=== PATIENT | female | born 1990 ===

== ENCOUNTER 2016-09-26 21:44 | Emergency (ER) | payer SELFPAY ==
--- NOTE | 2016-09-26 22:43 | ED NURSING NOTES ---
Clinical Report - Nurses [place] [address] [place] [address] 09/26/2016 21:45 Patient: SHAYAN GARZA TRIAGE Triage time 22:10 Sep 26 2016. Acuity: LEVEL 5. Chief Complaint: INJURY TO THE RIGHT GREAT TOE. 22:13 09/26/16. --22:13 Reina Peña R.N. Chief Complaint: INJURY TO THE RIGHT GREAT TOE (nail ripped off). --22:15 Reina Peña R.N. 22:14 09/26/16. BP: 128/53. HR: 87. RR: 18. O2 saturation: 100%. Temp: 98.3 F. Pain level now 7/10. --22:15 Reina Peña R.N. Weight: 95.2 kg stated. Height/Length: 65 inches Per Patient. BMI: 35. --22:09 Reina Peña R.N. Medications None. --22:11 Reina Peña R.N. Medication/allergy information source: the patient. --22:13 Reina Peña R.N. Allergies No Known Drug Allergy. --22:12 Reina Peña R.N. History Arrived by private vehicle. Historian: patient. Accompanied by family and friend. 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 SOCIAL HX: Never smoker. No alcohol use or drug use. No infectious disease exposure. ABUSE ASSESSMENT: No report of abuse. SELF HARM ASSESSMENT: A self harm assessment was performed. The patient answered "no" to the question "Have you recently felt down, depressed, or hopeless?", "Have you noticed less interest or pleasure in doing things?", "Do you have thoughts of harming or killing yourself?", "Are you here because you tried to hurt yourself?", "Have you ever tried to hurt yourself before today?", "Have you recently had thoughts about harming or killing others?" and "Do you have any dangerous items in your possession?". --22:13 Reina Peña R.N. ( was stepping into a truck and toe slipped, nail caught on rail). PAST MEDICAL HX: Tetanus status: more than 5 years ago. --22:15 Reina Peña R.N. PROBLEMS: no known problems. ADDITIONAL SURGERIES: no known surgeries. Interventions ID band on patient. --22:13 Reina Peña R.N. PHYSICAL ASSESSMENT EXTREMITIES: Right big toe: (toe nail ripped off (incomplete)). --22:16 Reina Peña R.N. NURSING PROGRESS NOTES 22:16 09/26/16. The initial plan of care for this patient includes an assessment with efforts to address the presence of pain. This plan of care was discussed with the patient. Reassurance given. Patient identifiers checked. Call light placed in reach. Side rails up x 1. Bed placed in lowest position. Brakes of bed on. ( Md in during triage). --22:16 Reina Peña R.N. 22:23 09/26/2016 Adacel IM 0.5 mL given. (Lot#: [id number], expiration date: 06/27/2018, Saddle And Harness Maker: sanofi pasteur). Given in the right deltoid. Allergies verified and confirmed 5 rights. Vaccine information statement provided to the patient. --22:24 Reina Peña R.N. 22:25 09/26/16. WOUND REPAIR: Wound repair performed by ED physician. Assisted by (UNASSISTED). The wound is located on the right great toe. The wound has an avulsed nail. Preparation: suture tray set-up with 0.25% Marcaine. Wound cleansed per physician and irrigated per physician. Procedure: wound repaired with Dermabond. Post-procedure: she was stable. Total time of assist / procedure: 15 minutes. --22:25 Reina Peña R.N. Applied dressing, following the application of antibiotic ointment (bacitracin) (2x2 secured with 1 inch neeraj and coban). --22:56 Reina Peña R.N. 22:55 09/26/2016 Percocet (Oxycodone-Acetaminophen) PO 5/325 mg Tablets 1 tab given. Allergies verified, confirmed 5 rights and sedative warning given to the patient. --22:57 Reina Peña R.N. DISPOSITION / DISCHARGE Condition at departure: improved and stable. The goals identified in the patient's plan of care were met. No learning barriers present. Discharge instructions provided and reviewed with the patient. Reviewed medication(s) side effects, precautions, dosing and course information. Prescription(s) given to the patient. Reviewed wound care instructions. Reviewed referral to a primary care physician for followup. Summary of care provided to patient. Patient verbalized understanding. Written instructions provided in Occitan. The patient was discharged home and accompanied by analyst geochemical prospecting. She left the Emergency Department ambulatory and via private vehicle. Refrigeration Tech driving. FALL RISK ASSESSMENT: Fall risk assessment completed. No fall risk identified. --22:58 Reina Peña R.N. 22:14 09/26/16. BP: 128/53. HR: 87. RR: 18. O2 saturation: 100%. Temp: 98.3 F. Pain level now 7/10. --22:58 Reina Peña R.N. Departure time: 22:58 Sep 26 2016. --22:58 Reina Peña R.N. Locked/Released at 09/26/2016 22:58 by Reina Peña R.N.
--- NOTE | 2016-09-26 22:43 | ED ORDER SUMMARY ---
..... Patient: SHAYAN GARZA OrderSheet [facility] VisitID: [id number] [address] [place] [address] 26y, F Registration Date/Time: 09/26/2016 ORDER SHEET Weight: 95.2 kg (stated) Allergies: No Known Drug Allergy GENERAL ORDERS: Toe Right (great) Urgent (22:29 09/26/2016 [facility] DO) (22:45 EInderbitzen R.N.) Dress Wounds (bandaid) (22:40 09/26/2016 [facility] DO) (22:45 EInderbitzen R.N.) Orthopedic Shoe (cast shoe) (22:40 09/26/2016 [facility]) (22:45 EInderbitzen R.N.) MEDICATION ORDERS: Adacel IM 0.5 mL (NOW) (22:17 09/26/2016 EInderbitzen R.N. verbal order read back to [facility]) (22:24 EInderbitzen R.N.) Hydrocodone-APAP PO 5/325 mg (NOW) (22:41 09/26/2016 [facility]) (Cancelled: Physician Order22:57 EInderbitzen R.N.) Percocet PO 5/325 mg (NOW) (22:57 09/26/2016 EInderbitzen R.N. verbal order read back to [facility]) (22:57 EInderbitzen R.N.) IV FLUIDS: ORDER SHEET NOTES: [Electronically signed by Reina Peña R.N. (22:58 09/26/2016)] [Electronically signed by Attila Ambrocio DO (20:28 09/27/2016)] [Electronically locked/signed by Reina Peña R.N. (22:58 09/26/2016)]
--- NOTE | 2016-09-26 22:43 | ED CLINICAL REPORT ---
Clinical Report - Physicians/Mid Levels [facility] [address] [place] [address] 09/26/2016 21:45 Patient: SHAYAN GARZA Time Seen: 22:10. Arrived- By private vehicle. Historian- patient. HISTORY OF PRESENT ILLNESS Chief Complaint: Injury to the right great toe. The injury happened just prior to arrival. Occurred at home. (was stepping into a truck and toe slipped, nail caught on a rail). Patient is experiencing moderate pain. Patient denies injury to the head or neck. No other injury. REVIEW OF SYSTEMS The patient sustained a laceration. She complains of pain on weight bearing. She has had swelling. No tingling, weakness, numbness or suspected foreign body. PAST HISTORY Negative. Surgeries: No history of previous surgery. SOCIAL HISTORY Never smoker. No alcohol use or drug use. ADDITIONAL NOTES The nursing notes have been reviewed. PHYSICAL EXAM Vital Signs: 09/26/2016 22:14 BP: 128/53. HR: 87. RR: 18. O2 saturation: 100%. Temp: 98.3 F. Appearance: Alert. Oriented X3. No acute distress. Head: Head atraumatic. Eyes: Eyes normal inspection. Neck: Normal inspection. CVS: Normal heart rate and rhythm. Heart sounds normal. Pulses normal. Respiratory: No respiratory distress. Breath sounds normal. Chest nontender. Abdomen: No visible injury. Skin: Skin warm and dry. (right great toenail avulsion). Extremities: Tip of right great toe: moderate tenderness nail completely avulsed. No foreign body. No right great toe tip amputation, exposed bone of right great toe or loss of the nail bed of right great toe. Extremities otherwise negative. Gait: Limping gait. Neuro, Vascular and Tendons: Vascular status intact. Sensation intact. Motor intact. LABS, X-RAYS, AND EKG Rt Toes X-ray: No fracture. Normal alignment. No bony lesion, air in the soft tissue or foreign body. Soft tissues normal. Joint spaces normal. (IMPRESSION: 1. Nailbed injury of the right great toe. 2. No evidence of fracture.). Views: AP, lateral and oblique. Technique: good. The X-rays were interpreted contemporaneously by me. The X-rays were discussed with the radiologist (via PACS report). PROGRESS AND PROCEDURES Digital Nerve Block- Toe: Digital nerve block performed on the right great toe. Web space approach utilized. Landmarks identified. Skin prepped. Total volume of 4 mL 2% Lidocaine infiltrated via a single puncture using a 27-gauge needle. Patient cooperative during procedure. No complications encountered. Good anesthesia achieved. (Nail replaced under nail fold and glued in place). Course of Care: Tdap Vaccine 0.5 mL IM given. Hydrocodone/APAP 5 mg PO given. Patient/family counseled. Disposition: Discharged. Condition: stable and improved. CLINICAL IMPRESSION Complete nail avulsion to right great toe. INSTRUCTIONS Apply ice. Elevate affected areas above chest level. Wear stiff soled shoe until better. You may walk and bear weight as tolerated. (Please make sure the nail stays in place to serve as a stent for the new nail growth). Warnings: INFECTION: Watch for signs of infection (increasing heat and redness, pus-like drainage, swelling, or increased pain). Return or see your doctor if these signs occur. TETANUS: You were given a tetanus shot during your visit. Make a note for future reference. GENERAL WARNINGS: Return or contact your physician immediately if your condition worsens or changes unexpectedly, if not improving as expected, or if other problems arise. Prescription Medications: Hydrocodone/APAP 5mg / 325mg: take 1-2 orally every 6 hours as needed for pain. Dispense five (5). No refill. Ibuprofen 600mg tablets: take 1 tablet orally every 8 hours as needed for pain. Dispense thirty (30). No refills. OTC Medications: Acetaminophen (available over the counter): take according to label instructions. Follow-up: Follow up with your doctor in about five days. Follow-up with: Daniel Younger DPM, Podiatry, , [facility], [address] [place] [address], [address], [place] [address] Follow up. Call for the next available appointment. (Electronically signed by Attila Ambrocio DO 09/27/2016 20:28)
--- NOTE | 2016-09-26 22:43 | ED CLINICAL REPORT ---
Clinical Report - Physicians/Mid Levels [facility] [address] [place] [address] 09/26/2016 21:45 Patient: SHAYAN GARZA Time Seen: 22:10. Arrived- By private vehicle. Historian- patient. HISTORY OF PRESENT ILLNESS Chief Complaint: Injury to the right great toe. The injury happened just prior to arrival. Occurred at home. (was stepping into a truck and toe slipped, nail caught on a rail). Patient is experiencing moderate pain. Patient denies injury to the head or neck. No other injury. REVIEW OF SYSTEMS The patient sustained a laceration. She complains of pain on weight bearing. She has had swelling. No tingling, weakness, numbness or suspected foreign body. PAST HISTORY Negative. Surgeries: No history of previous surgery. SOCIAL HISTORY Never smoker. No alcohol use or drug use. ADDITIONAL NOTES The nursing notes have been reviewed. PHYSICAL EXAM Vital Signs: 09/26/2016 22:14 BP: 128/53. HR: 87. RR: 18. O2 saturation: 100%. Temp: 98.3 F. Appearance: Alert. Oriented X3. No acute distress. Head: Head atraumatic. Eyes: Eyes normal inspection. Neck: Normal inspection. CVS: Normal heart rate and rhythm. Heart sounds normal. Pulses normal. Respiratory: No respiratory distress. Breath sounds normal. Chest nontender. Abdomen: No visible injury. Skin: Skin warm and dry. (right great toenail avulsion). Extremities: Tip of right great toe: moderate tenderness nail completely avulsed. No foreign body. No right great toe tip amputation, exposed bone of right great toe or loss of the nail bed of right great toe. Extremities otherwise negative. Gait: Limping gait. Neuro, Vascular and Tendons: Vascular status intact. Sensation intact. Motor intact. LABS, X-RAYS, AND EKG Rt Toes X-ray: No fracture. Normal alignment. No bony lesion, air in the soft tissue or foreign body. Soft tissues normal. Joint spaces normal. (IMPRESSION: 1. Nailbed injury of the right great toe. 2. No evidence of fracture.). Views: AP, lateral and oblique. Technique: good. The X-rays were interpreted contemporaneously by me. The X-rays were discussed with the radiologist (via PACS report). PROGRESS AND PROCEDURES Digital Nerve Block- Toe: Digital nerve block performed on the right great toe. Web space approach utilized. Landmarks identified. Skin prepped. Total volume of 4 mL 2% Lidocaine infiltrated via a single puncture using a 27-gauge needle. Patient cooperative during procedure. No complications encountered. Good anesthesia achieved. (Nail replaced under nail fold and glued in place). Course of Care: Tdap Vaccine 0.5 mL IM given. Hydrocodone/APAP 5 mg PO given. Patient/family counseled. Disposition: Discharged. Condition: stable and improved. CLINICAL IMPRESSION Complete nail avulsion to right great toe. INSTRUCTIONS Apply ice. Elevate affected areas above chest level. Wear stiff soled shoe until better. You may walk and bear weight as tolerated. (Please make sure the nail stays in place to serve as a stent for the new nail growth). Warnings: INFECTION: Watch for signs of infection (increasing heat and redness, pus-like drainage, swelling, or increased pain). Return or see your doctor if these signs occur. TETANUS: You were given a tetanus shot during your visit. Make a note for future reference. GENERAL WARNINGS: Return or contact your physician immediately if your condition worsens or changes unexpectedly, if not improving as expected, or if other problems arise. Prescription Medications: Hydrocodone/APAP 5mg / 325mg: take 1-2 orally every 6 hours as needed for pain. Dispense five (5). No refill. Ibuprofen 600mg tablets: take 1 tablet orally every 8 hours as needed for pain. Dispense thirty (30). No refills. OTC Medications: Acetaminophen (available over the counter): take according to label instructions. Follow-up: Follow up with your doctor in about five days. Follow-up with: Daniel Younger DPM, Podiatry, , [facility], [address] [place] [address], [address], [place] [address] Follow up. Call for the next available appointment. (Electronically signed by Attila Ambrocio DO 09/27/2016 20:28)
--- NOTE | 2016-09-26 22:43 | ED NURSING NOTES ---
Clinical Report - Nurses [place] [address] [place] [address] 09/26/2016 21:45 Patient: SHAYAN GARZA TRIAGE Triage time 22:10 Sep 26 2016. Acuity: LEVEL 5. Chief Complaint: INJURY TO THE RIGHT GREAT TOE. 22:13 09/26/16. --22:13 Reina Peña R.N. Chief Complaint: INJURY TO THE RIGHT GREAT TOE (nail ripped off). --22:15 Reina Peña R.N. 22:14 09/26/16. BP: 128/53. HR: 87. RR: 18. O2 saturation: 100%. Temp: 98.3 F. Pain level now 7/10. --22:15 Reina Peña R.N. Weight: 95.2 kg stated. Height/Length: 65 inches Per Patient. BMI: 35. --22:09 Reina Peña R.N. Medications None. --22:11 Reina Peña R.N. Medication/allergy information source: the patient. --22:13 Reina Peña R.N. Allergies No Known Drug Allergy. --22:12 Reina Peña R.N. History Arrived by private vehicle. Historian: patient. Accompanied by family and friend. 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 SOCIAL HX: Never smoker. No alcohol use or drug use. No infectious disease exposure. ABUSE ASSESSMENT: No report of abuse. SELF HARM ASSESSMENT: A self harm assessment was performed. The patient answered "no" to the question "Have you recently felt down, depressed, or hopeless?", "Have you noticed less interest or pleasure in doing things?", "Do you have thoughts of harming or killing yourself?", "Are you here because you tried to hurt yourself?", "Have you ever tried to hurt yourself before today?", "Have you recently had thoughts about harming or killing others?" and "Do you have any dangerous items in your possession?". --22:13 Reina Peña R.N. ( was stepping into a truck and toe slipped, nail caught on rail). PAST MEDICAL HX: Tetanus status: more than 5 years ago. --22:15 Reina Peña R.N. PROBLEMS: no known problems. ADDITIONAL SURGERIES: no known surgeries. Interventions ID band on patient. --22:13 Reina Peña R.N. PHYSICAL ASSESSMENT EXTREMITIES: Right big toe: (toe nail ripped off (incomplete)). --22:16 Reina Peña R.N. NURSING PROGRESS NOTES 22:16 09/26/16. The initial plan of care for this patient includes an assessment with efforts to address the presence of pain. This plan of care was discussed with the patient. Reassurance given. Patient identifiers checked. Call light placed in reach. Side rails up x 1. Bed placed in lowest position. Brakes of bed on. ( Md in during triage). --22:16 Reina Peña R.N. 22:23 09/26/2016 Adacel IM 0.5 mL given. (Lot#: [id number], expiration date: 06/27/2018, Asbestos Cement Sheet Supervisor: sanofi pasteur). Given in the right deltoid. Allergies verified and confirmed 5 rights. Vaccine information statement provided to the patient. --22:24 Reina Peña R.N. 22:25 09/26/16. WOUND REPAIR: Wound repair performed by ED physician. Assisted by (UNASSISTED). The wound is located on the right great toe. The wound has an avulsed nail. Preparation: suture tray set-up with 0.25% Marcaine. Wound cleansed per physician and irrigated per physician. Procedure: wound repaired with Dermabond. Post-procedure: she was stable. Total time of assist / procedure: 15 minutes. --22:25 Reina Peña R.N. Applied dressing, following the application of antibiotic ointment (bacitracin) (2x2 secured with 1 inch neeraj and coban). --22:56 Reina Peña R.N. 22:55 09/26/2016 Percocet (Oxycodone-Acetaminophen) PO 5/325 mg Tablets 1 tab given. Allergies verified, confirmed 5 rights and sedative warning given to the patient. --22:57 Reina Peña R.N. DISPOSITION / DISCHARGE Condition at departure: improved and stable. The goals identified in the patient's plan of care were met. No learning barriers present. Discharge instructions provided and reviewed with the patient. Reviewed medication(s) side effects, precautions, dosing and course information. Prescription(s) given to the patient. Reviewed wound care instructions. Reviewed referral to a primary care physician for followup. Summary of care provided to patient. Patient verbalized understanding. Written instructions provided in Slovenian. The patient was discharged home and accompanied by program officer. She left the Emergency Department ambulatory and via private vehicle. Food Safety Director driving. FALL RISK ASSESSMENT: Fall risk assessment completed. No fall risk identified. --22:58 Reina Peña R.N. 22:14 09/26/16. BP: 128/53. HR: 87. RR: 18. O2 saturation: 100%. Temp: 98.3 F. Pain level now 7/10. --22:58 Reina Peña R.N. Departure time: 22:58 Sep 26 2016. --22:58 Reina Peña R.N. Locked/Released at 09/26/2016 22:58 by Reina Peña R.N.
--- NOTE | 2016-09-26 22:43 | ED ORDER SUMMARY ---
..... Patient: SHAYAN GARZA OrderSheet [facility] VisitID: [id number] [address] [place] [address] 26y, F Registration Date/Time: 09/26/2016 ORDER SHEET Weight: 95.2 kg (stated) Allergies: No Known Drug Allergy GENERAL ORDERS: Toe Right (great) Urgent (22:29 09/26/2016 [facility] DO) (22:45 EInderbitzen R.N.) Dress Wounds (bandaid) (22:40 09/26/2016 [facility] DO) (22:45 EInderbitzen R.N.) Orthopedic Shoe (cast shoe) (22:40 09/26/2016 [facility]) (22:45 EInderbitzen R.N.) MEDICATION ORDERS: Adacel IM 0.5 mL (NOW) (22:17 09/26/2016 EInderbitzen R.N. verbal order read back to [facility]) (22:24 EInderbitzen R.N.) Hydrocodone-APAP PO 5/325 mg (NOW) (22:41 09/26/2016 [facility]) (Cancelled: Physician Order22:57 EInderbitzen R.N.) Percocet PO 5/325 mg (NOW) (22:57 09/26/2016 EInderbitzen R.N. verbal order read back to [facility]) (22:57 EInderbitzen R.N.) IV FLUIDS: ORDER SHEET NOTES: [Electronically signed by Reina Peña R.N. (22:58 09/26/2016)] [Electronically signed by Attila Ambrocio DO (20:28 09/27/2016)] [Electronically locked/signed by Reina Peña R.N. (22:58 09/26/2016)]
--- NOTE | 2016-09-26 23:04 | DIAGNOSTIC IMAGING REPORT ---
PROCEDURE: XR TOE - RIGHT (great toe). INDICATION: TRAUMA/INJURY TECHNIQUE: Three views. COMPARISON: None. FINDINGS: Nailbed injury. Osseous structures and joint spaces are normal. No evidence of fracture. IMPRESSION: 1. Nailbed injury of the right great toe. 2. No evidence of fracture.
--- NOTE | 2016-09-27 20:28 | ED MED RECONCILIATION SUMMARY ---
Patient: SHAYAN GARZA Medication Reconciliation Report [facility] VisitID: [id number] [address] [place] [address] 26y, F Registration Date/Time: 09/26/2016 Weight: 95.2 kg Height/Length: 65 in. BMI: 35.0 ALLERGIES: No Known Drug Allergy The patient's Home Medications are listed below: NONE. The source(s) of the original Home Medication information: patient The following Medications were given to the patient in the Emergency Department: Adacel [IM] IM 0.5 mL, administered: 09/26/2016 10:23:00 PM Percocet [PO] PO 1 tab, administered: 09/26/2016 10:55:00 PM The following Medications were prescribed to the patient: Acetaminophen (available over the counter): take according to label instructions. -- Attila Ambrocio DO Hydrocodone/APAP 5mg / 325mg: take 1-2 orally every 6 hours as needed for pain. Dispense five (5). No refill. -- Attila Ambrocio DO Ibuprofen 600mg tablets: take 1 tablet orally every 8 hours as needed for pain. Dispense thirty (30). No refills. -- Attila Ambrocio DO
--- NOTE | 2016-09-27 20:28 | ED DISCHARGE INSTRUCTIONS ---
Patient: SHAYAN GARZA General Instructions [facility] VisitID: [id number] [address], [place] [address] 26y, F Registration Date/Time: 09/26/2016 Complete nail avulsion to right great toe. INSTRUCTIONS Apply ice. Elevate affected areas above chest level. Wear stiff soled shoe until better. You may walk and bear weight as tolerated. (Please make sure the nail stays in place to serve as a stent for the new nail growth). Warnings: INFECTION: Watch for signs of infection (increasing heat and redness, pus-like drainage, swelling, or increased pain). Return or see your doctor if these signs occur. TETANUS: You were given a tetanus shot during your visit. Make a note for future reference. GENERAL WARNINGS: Return or contact your physician immediately if your condition worsens or changes unexpectedly, if not improving as expected, or if other problems arise. Prescription Medications: Hydrocodone/APAP 5mg / 325mg: take 1-2 orally every 6 hours as needed for pain. Dispense five (5). No refill. Ibuprofen 600mg tablets: take 1 tablet orally every 8 hours as needed for pain. Dispense thirty (30). No refills. OTC Medications: Acetaminophen (available over the counter): take according to label instructions. Follow-up: Follow up with your doctor in about five days. Follow-up with: Daniel Younger DPM, Podiatry, , [facility], [address] [place] [address], [address], [place] [address] Follow up. Call for the next available appointment. ADDITIONAL INFORMATION Nail Injury (Partial Finger/Toe Nail Plate Avulsion) Some injuries to a finger or toe can cause loosening of the nail. Sometimes there is a cutin the nail bed or a fracture of the bone under the nail. If the nail is more severely injured, it may fall off completely in 12 weeks. This is not serious and in most cases, the nail will grow back from under the cuticle. This takes a few weeks to start and is complete in about 46 months for a fingernail and 12 months for a toenail. If the nail bed was damaged, the nail may grow back with a rough or irregular shape. Sometimes the nail may not regrow at all. Home care The following guidelines will help you care for your wound at home: Keep the injured part elevated to reduce pain and swelling. This is very important during the first 48 hours. Make an ice pack (ice cubes in a plastic bag, wrapped in a towel) and apply for 20 minutes every two hours during the first day, then 34 times a day to reduce swelling and pain until the swelling goes down. You may use acetaminophen or ibuprofen to control pain, unless another pain medicine was prescribed.If you have chronic liver or kidney disease or ever had a stomach ulcer or GI bleeding, talk with your doctor before using these medicines. Do not use ibuprofen in children under six months of age. If a bandage was applied, change it once a day, unless told otherwise. Be careful not to pull on the nail when removing the dressing. If necessary, soak the dressing off while holding your finger or toe under warm running water. Apply a layer of antibiotic ointment onto the nail before putting on the new dressing or adhesive bandage. This will help keep it from sticking. If an X-ray was taken and a fracture was found, it will take about four weeks for this to heal. The injured part should be protected with a splint or tape while it is healing. If you were prescribed antibiotics to prevent infection, take them as directed until they are all gone. Follow-up care Follow up with your doctor or this facility as directed. Note:If X-rays were taken, they will be reviewed by a radiologist. You will be notified of any new findings that may affect your care. When to seek medical care Get prompt medical attention if any of the following occur: Pain or swelling increase Redness around the nail Pus (creamy white or yellow fluid) draining from the nail Fever of 100.4F (38C) or higher, or as directed by your health care provider Diphtheria Toxoid Adsorbed, Pertussis Vaccine, Acellular (Adsorbed), Tetanus Toxoid, Adsorbed Suspension for injection What is this medicine? DIPHTHERIA and TETANUS TOXOIDS; PERTUSSIS VACCINE (dif THEER ee uh and TET n us TOK soids; per TUS iss vak SEEN) is used to prevent diphtheria, tetanus, and pertussis infections. How should I use this medicine? This vaccine is for injection into a muscle. It is given by a health home care assistant. A copy of Vaccine Information Statements will be given before each vaccination. Read this sheet carefully each time. The sheet may change frequently. Talk to your supervisor shuttle fitting regarding the use of this vaccine in children. While the DTP vaccine may be given to children ages 6 weeks to 7 years and the Tdap vaccine may be given to children at least 10 years old, precautions do apply. What side effects may I notice from receiving this medicine? Side effects that you should report to your doctor or health home care assistant as soon as possible: allergic reactions like skin rash, itching or hives, swelling of the face, lips, or tongue breathing problems fever of 103 degrees F or more flu-like symptoms inconsolable crying infection pain, tingling, numbness in the hands or feet seizures swelling of arm or leg that was injected unusually weak or tired Side effects that usually do not require immediate medical attention (report these side effects to your doctor or health home care assistant if they continue or are bothersome): fussy, irritable loss of appetite fever of 102 degrees F or less pain, tenderness, redness, swelling, or a 'knot' at site where injected vomiting What may interact with this medicine? immune globulin medicines that suppress your immune function like adalimumab, anakinra, infliximab medicines to treat cancer medicines that treat or prevent blood clots like warfarin, enoxaparin, and dalteparin steroid medicines like prednisone or cortisone What if I miss a dose? It is important not to miss your dose. Call your doctor or health home care assistant if you are unable to keep an appointment. Where should I keep my medicine? This drug is given in a hospital or clinic and will not be stored at home. What should I tell my health care provider before I take this medicine? They need to know if you have any of these conditions: blood disorders like hemophilia fever or infection immune system problems neurologic disease seizures an unusual or allergic reaction to vaccines, thimerosal, latex, other medicines, foods, dyes, or preservatives or trying to get breast-feeding What should I watch for while using this medicine? See your health care provider for all shots of this vaccine as directed. To have protection from infection, you must have 3 shots of this vaccine plus boosters as needed. Tell your doctor right away if you have any serious or unusual side effects after getting this vaccine. Hydrocodone Bitartrate, Acetaminophen Oral tablet What is this medicine? ACETAMINOPHEN; HYDROCODONE (a set a DARREL bony fen; michael droe KOE done) is a pain reliever. It is used to treat mild to moderate pain. How should I use this medicine? Take this medicine by mouth. Swallow it with a full glass of water. Follow the directions on the prescription label. If the medicine upsets your stomach, take the medicine with food or milk. Do not take more than you are told to take. Talk to your supervisor shuttle fitting regarding the use of this medicine in children. This medicine is not approved for use in children. What side effects may I notice from receiving this medicine? Side effects that you should report to your doctor or health home care assistant as soon as possible: allergic reactions like skin rash, itching or hives, swelling of the face, lips, or tongue breathing problems confusion feeling faint or lightheaded, falls stomach pain yellowing of the eyes or skin Side effects that usually do not require medical attention (report to your doctor or health home care assistant if they continue or are bothersome): nausea, vomiting stomach upset What may interact with this medicine? alcohol antihistamines isoniazid medicines for depression, anxiety, or psychotic disturbances medicines for sleep muscle relaxants naltrexone narcotic medicines (opiates) for pain phenobarbital ritonavir tramadol What if I miss a dose? If you miss a dose, take it as soon as you can. If it is almost time for your next dose, take only that dose. Do not take double or extra doses. Where should I keep my medicine? Keep out of the reach of children. This medicine can be abused. Keep your medicine in a safe place to protect it from theft. Do not share this medicine with anyone. Selling or giving away this medicine is dangerous and against the law. Store at room temperature between 15 and 30 degrees C (59 and 86 degrees F). Protect from light. Keep container tightly closed. Throw away any unused medicine after the expiration date. Discard unused medicine and used packaging carefully. Pets and children can be harmed if they find used or lost packages. What should I tell my health care provider before I take this medicine? They need to know if you have any of these conditions: brain tumor Crohn's disease, inflammatory bowel disease, or ulcerative colitis drink more than 3 alcohol-containing drinks per day drug abuse or addiction head injury heart or circulation problems kidney disease or problems going to the bathroom liver disease lung disease, asthma, or breathing problems an unusual or allergic reaction to acetaminophen, hydrocodone, other opioid analgesics, other medicines, foods, dyes, or preservatives or trying to get breast-feeding What should I watch for while using this medicine? Tell your doctor or health home care assistant if your pain does not go away, if it gets worse, or if you have new or a different type of pain. You may develop tolerance to the medicine. Tolerance means that you will need a higher dose of the medicine for pain relief. Tolerance is normal and is expected if you take the medicine for a long time. Do not suddenly stop taking your medicine because you may develop a severe reaction. Your body becomes used to the medicine. This does NOT mean you are addicted. Addiction is a behavior related to getting and using a drug for a non-medical reason. If you have pain, you have a medical reason to take pain medicine. Your doctor will tell you how much medicine to take. If your doctor wants you to stop the medicine, the dose will be slowly lowered over time to avoid any side effects. You may get drowsy or dizzy when you first start taking the medicine or change doses. Do not drive, use machinery, or do anything that may be dangerous until you know how the medicine affects you. Stand or sit up slowly. There are different types of narcotic medicines (opiates) for pain. If you take more than one type at the same time, you may have more side effects. Give your health care provider a list of all medicines you use. Your doctor will tell you how much medicine to take. Do not take more medicine than directed. Call emergency for help if you have problems breathing. The medicine will cause constipation. Try to have a bowel movement at least every 2 to 3 days. If you do not have a bowel movement for 3 days, call your doctor or health home care assistant. Too much acetaminophen can be very dangerous. Do not take Tylenol (acetaminophen) or medicines that contain acetaminophen with this medicine. Many non-prescription medicines contain acetaminophen. Always read the labels carefully. Ibuprofen Oral tablet What is this medicine? IBUPROFEN (eye BYOO proe fen) is a non-steroidal anti-inflammatory drug (NSAID). It is used for dental pain, fever, headaches or migraines, osteoarthritis, rheumatoid arthritis, or painful monthly periods. It can also relieve minor aches and pains caused by a cold, flu, or sore throat. How should I use this medicine? Take this medicine by mouth with a glass of water. Follow the directions on the prescription label. Take this medicine with food if your stomach gets upset. Try to not lie down for at least 10 minutes after you take the medicine. Take your medicine at regular intervals. Do not take your medicine more often than directed. A special MedGuide will be given to you by the pharmacist with each prescription and refill. Be sure to read this information carefully each time. Talk to your supervisor shuttle fitting regarding the use of this medicine in children. Special care may be needed. What side effects may I notice from receiving this medicine? Side effects that you should report to your doctor or health home care assistant as soon as possible: allergic reactions like skin rash, itching or hives, swelling of the face, lips, or tongue black or bloody stools, blood in the urine or in vomit breathing problems changes in vision chest pain general ill feeling or flu-like symptoms nausea or vomiting redness, blistering, peeling or loosening of the skin, including inside the mouth slurred speech or weakness on one side of the body stomach pain unexplained weight gain or swelling unusually weak or tired yellowing of eyes or skin Side effects that usually do not require medical attention (report to your doctor or health home care assistant if they continue or are bothersome): constipation or diarrhea dizziness gas or heartburn stomach upset What may interact with this medicine? Do not take this medicine with any of the following medications: cidofovir ketorolac methotrexate pemetrexed This medicine may also interact with the following medications: alcohol aspirin diuretics lithium other drugs for inflammation like prednisone warfarin What if I miss a dose? If you miss a dose, take it as soon as you can. If it is almost time for your next dose, take only that dose. Do not take double or extra doses. Where should I keep my medicine? Keep out of the reach of children. Store at room temperature between 15 and 30 degrees C (59 and 86 degrees F). Keep container tightly closed. Throw away any unused medicine after the expiration date. What should I tell my health care provider before I take this medicine? They need to know if you have any of these conditions: asthma cigarette smoker drink more than 3 alcohol containing drinks a day heart disease or circulation problems such as heart failure or leg edema (fluid retention) high blood pressure kidney disease liver disease stomach bleeding or ulcers an unusual or allergic reaction to ibuprofen, aspirin, other NSAIDS, other medicines, foods, dyes, or preservatives or trying to get breast-feeding What should I watch for while using this medicine? Tell your doctor or healthcare professional if your symptoms do not start to get better or if they get worse. This medicine does not prevent heart attack or stroke. In fact, this medicine may increase the chance of a heart attack or stroke. The chance may increase with longer use of this medicine and in people who have heart disease. If you take aspirin to prevent heart attack or stroke, talk with your doctor or health home care assistant. Do not take other medicines that contain aspirin, ibuprofen, or naproxen with this medicine. Side effects such as stomach upset, nausea, or ulcers may be more likely to occur. Many medicines available without a prescription should not be taken with this medicine. This medicine can cause ulcers and bleeding in the stomach and intestines at any time during treatment. Ulcers and bleeding can happen without warning symptoms and can cause . To reduce your risk, do not smoke cigarettes or drink alcohol while you are taking this medicine. You may get drowsy or dizzy. Do not drive, use machinery, or do anything that needs mental alertness until you know how this medicine affects you. Do not stand or sit up quickly, especially if you are an older patient. This reduces the risk of dizzy or fainting spells. This medicine can cause you to bleed more easily. Try to avoid damage to your teeth and gums when you brush or floss your teeth. Acetaminophen Oral tablet What is this medicine? ACETAMINOPHEN (a set a DARREL bony fen) is a pain reliever. It is used to treat mild pain and fever. How should I use this medicine? Take this medicine by mouth with a glass of water. Follow the directions on the package or prescription label. Take your medicine at regular intervals. Do not take your medicine more often than directed. Talk to your supervisor shuttle fitting regarding the use of this medicine in children. While this drug may be prescribed for children as young as 6 years of age for selected conditions, precautions do apply. What side effects may I notice from receiving this medicine? Side effects that you should report to your doctor or health home care assistant as soon as possible: allergic reactions like skin rash, itching or hives, swelling of the face, lips, or tongue breathing problems fever or sore throat redness, blistering, peeling or loosening of the skin, including inside the mouth trouble passing urine or change in the amount of urine unusual bleeding or bruising unusually weak or tired yellowing of the eyes or skin Side effects that usually do not require medical attention (report to your doctor or health home care assistant if they continue or are bothersome): headache nausea, stomach upset What may interact with this medicine? alcohol imatinib isoniazid other medicines with acetaminophen What if I miss a dose? If you miss a dose, take it as soon as you can. If it is almost time for your next dose, take only that dose. Do not take double or extra doses. Where should I keep my medicine? Keep out of reach of children. Store at room temperature between 20 and 25 degrees C (68 and 77 degrees F). Protect from moisture and heat. Throw away any unused medicine after the expiration date. What should I tell my health care provider before I take this medicine? They need to know if you have any of these conditions: if you frequently drink alcohol containing drinks liver disease an unusual or allergic reaction to acetaminophen, other medicines, foods, dyes or preservatives or trying to get breast-feeding What should I watch for while using this medicine? Tell your doctor or health home care assistant if the pain lasts more than 10 days (5 days for children), if it gets worse, or if there is a new or different kind of pain. Also, check with your doctor if a fever lasts for more than 3 days. Do not take other medicines that contain acetaminophen with this medicine. Always read labels carefully. If you have questions, ask your doctor or pharmacist. If you take too much acetaminophen get medical help right away. Too much acetaminophen can be very dangerous and cause liver damage. Even if you do not have symptoms, it is important to get help right away. You have been given the following additional information: Nail Avulsion, Partial Diphtheria Toxoid Adsorbed, Pertussis Vaccine, Acellular (Adsorbed), Tetanus Toxoid, Adsorbed Suspension for injection Hydrocodone Bitartrate, Acetaminophen Oral tablet Ibuprofen Oral tablet Acetaminophen Oral tablet You may walk and bear weight as tolerated. (Electronically signed by Attila Ambrocio DO 09/27/2016 20:28)
--- NOTE | 2016-09-27 20:28 | ED MAR SUMMARY ---
..... Medication Administration Record [facility] [address] [place] [address] Patient: SHAYAN GARZA Visit ID: [id number] 26y, F Weight: 95.2 kg Height/Length: 65 in BMI: 35 ALLERGIES: No Known Drug Allergy Given 22:23 09/26/2016 Reina Peña RDustinNDustin Medication Administered: ADACEL [IM], Dose: 0.5 mL IM. Medication Ordered: Adacel IM 0.5 mL (NOW). Given 22:55 09/26/2016 Reina Peña, R.N. Medication Administered: PERCOCET [PO] (OXYCODONE-ACETAMINOPHEN), Dose: 1 tab 5/325 mg Tablets PO. Medication Ordered: Percocet PO 5/325 mg (NOW).
--- NOTE | 2016-09-27 20:28 | ED MED RECONCILIATION SUMMARY ---
Patient: SHAYAN GARZA Medication Reconciliation Report [facility] VisitID: [id number] [address] [place] [address] 26y, F Registration Date/Time: 09/26/2016 Weight: 95.2 kg Height/Length: 65 in. BMI: 35.0 ALLERGIES: No Known Drug Allergy The patient's Home Medications are listed below: NONE. The source(s) of the original Home Medication information: patient The following Medications were given to the patient in the Emergency Department: Adacel [IM] IM 0.5 mL, administered: 09/26/2016 10:23:00 PM Percocet [PO] PO 1 tab, administered: 09/26/2016 10:55:00 PM The following Medications were prescribed to the patient: Acetaminophen (available over the counter): take according to label instructions. -- Attila Ambrocio DO Hydrocodone/APAP 5mg / 325mg: take 1-2 orally every 6 hours as needed for pain. Dispense five (5). No refill. -- Attila Ambrocio DO Ibuprofen 600mg tablets: take 1 tablet orally every 8 hours as needed for pain. Dispense thirty (30). No refills. -- Attila Ambrocio DO
--- NOTE | 2016-09-27 20:28 | ED MAR SUMMARY ---
..... Medication Administration Record [facility] [address] [place] [address] Patient: SHAYAN GARZA Visit ID: [id number] 26y, F Weight: 95.2 kg Height/Length: 65 in BMI: 35 ALLERGIES: No Known Drug Allergy Given 22:23 09/26/2016 Reina Peña RDustinNDustin Medication Administered: ADACEL [IM], Dose: 0.5 mL IM. Medication Ordered: Adacel IM 0.5 mL (NOW). Given 22:55 09/26/2016 Reina Peña, R.N. Medication Administered: PERCOCET [PO] (OXYCODONE-ACETAMINOPHEN), Dose: 1 tab 5/325 mg Tablets PO. Medication Ordered: Percocet PO 5/325 mg (NOW).
--- NOTE | 2016-09-27 20:28 | ED DISCHARGE INSTRUCTIONS ---
Patient: SHAYAN GARZA General Instructions [facility] VisitID: [id number] Carina Valencia, [place] [address] 26y, F Registration Date/Time: 09/26/2016 Complete nail avulsion to right great toe. INSTRUCTIONS Apply ice. Elevate affected areas above chest level. Wear stiff soled shoe until better. You may walk and bear weight as tolerated. (Please make sure the nail stays in place to serve as a stent for the new nail growth). Warnings: INFECTION: Watch for signs of infection (increasing heat and redness, pus-like drainage, swelling, or increased pain). Return or see your doctor if these signs occur. TETANUS: You were given a tetanus shot during your visit. Make a note for future reference. GENERAL WARNINGS: Return or contact your physician immediately if your condition worsens or changes unexpectedly, if not improving as expected, or if other problems arise. Prescription Medications: Hydrocodone/APAP 5mg / 325mg: take 1-2 orally every 6 hours as needed for pain. Dispense five (5). No refill. Ibuprofen 600mg tablets: take 1 tablet orally every 8 hours as needed for pain. Dispense thirty (30). No refills. OTC Medications: Acetaminophen (available over the counter): take according to label instructions. Follow-up: Follow up with your doctor in about five days. Follow-up with: Daniel Younger DPM, Podiatry, , [facility], [address] [place] [address], [address], [place] [address] Follow up. Call for the next available appointment. ADDITIONAL INFORMATION Nail Injury (Partial Finger/Toe Nail Plate Avulsion) Some injuries to a finger or toe can cause loosening of the nail. Sometimes there is a cutin the nail bed or a fracture of the bone under the nail. If the nail is more severely injured, it may fall off completely in 12 weeks. This is not serious and in most cases, the nail will grow back from under the cuticle. This takes a few weeks to start and is complete in about 46 months for a fingernail and 12 months for a toenail. If the nail bed was damaged, the nail may grow back with a rough or irregular shape. Sometimes the nail may not regrow at all. Home care The following guidelines will help you care for your wound at home: Keep the injured part elevated to reduce pain and swelling. This is very important during the first 48 hours. Make an ice pack (ice cubes in a plastic bag, wrapped in a towel) and apply for 20 minutes every two hours during the first day, then 34 times a day to reduce swelling and pain until the swelling goes down. You may use acetaminophen or ibuprofen to control pain, unless another pain medicine was prescribed.If you have chronic liver or kidney disease or ever had a stomach ulcer or GI bleeding, talk with your doctor before using these medicines. Do not use ibuprofen in children under six months of age. If a bandage was applied, change it once a day, unless told otherwise. Be careful not to pull on the nail when removing the dressing. If necessary, soak the dressing off while holding your finger or toe under warm running water. Apply a layer of antibiotic ointment onto the nail before putting on the new dressing or adhesive bandage. This will help keep it from sticking. If an X-ray was taken and a fracture was found, it will take about four weeks for this to heal. The injured part should be protected with a splint or tape while it is healing. If you were prescribed antibiotics to prevent infection, take them as directed until they are all gone. Follow-up care Follow up with your doctor or this facility as directed. Note:If X-rays were taken, they will be reviewed by a radiologist. You will be notified of any new findings that may affect your care. When to seek medical care Get prompt medical attention if any of the following occur: Pain or swelling increase Redness around the nail Pus (creamy white or yellow fluid) draining from the nail Fever of 100.4F (38C) or higher, or as directed by your health care provider Diphtheria Toxoid Adsorbed, Pertussis Vaccine, Acellular (Adsorbed), Tetanus Toxoid, Adsorbed Suspension for injection What is this medicine? DIPHTHERIA and TETANUS TOXOIDS; PERTUSSIS VACCINE (dif THEER ee uh and TET n us TOK soids; per TUS iss vak SEEN) is used to prevent diphtheria, tetanus, and pertussis infections. How should I use this medicine? This vaccine is for injection into a muscle. It is given by a health overnight caregiver. A copy of Vaccine Information Statements will be given before each vaccination. Read this sheet carefully each time. The sheet may change frequently. Talk to your brazing furnace operator regarding the use of this vaccine in children. While the DTP vaccine may be given to children ages 6 weeks to 7 years and the Tdap vaccine may be given to children at least 10 years old, precautions do apply. What side effects may I notice from receiving this medicine? Side effects that you should report to your doctor or health overnight caregiver as soon as possible: allergic reactions like skin rash, itching or hives, swelling of the face, lips, or tongue breathing problems fever of 103 degrees F or more flu-like symptoms inconsolable crying infection pain, tingling, numbness in the hands or feet seizures swelling of arm or leg that was injected unusually weak or tired Side effects that usually do not require immediate medical attention (report these side effects to your doctor or health overnight caregiver if they continue or are bothersome): fussy, irritable loss of appetite fever of 102 degrees F or less pain, tenderness, redness, swelling, or a 'knot' at site where injected vomiting What may interact with this medicine? immune globulin medicines that suppress your immune function like adalimumab, anakinra, infliximab medicines to treat cancer medicines that treat or prevent blood clots like warfarin, enoxaparin, and dalteparin steroid medicines like prednisone or cortisone What if I miss a dose? It is important not to miss your dose. Call your doctor or health overnight caregiver if you are unable to keep an appointment. Where should I keep my medicine? This drug is given in a hospital or clinic and will not be stored at home. What should I tell my health care provider before I take this medicine? They need to know if you have any of these conditions: blood disorders like hemophilia fever or infection immune system problems neurologic disease seizures an unusual or allergic reaction to vaccines, thimerosal, latex, other medicines, foods, dyes, or preservatives or trying to get breast-feeding What should I watch for while using this medicine? See your health care provider for all shots of this vaccine as directed. To have protection from infection, you must have 3 shots of this vaccine plus boosters as needed. Tell your doctor right away if you have any serious or unusual side effects after getting this vaccine. Hydrocodone Bitartrate, Acetaminophen Oral tablet What is this medicine? ACETAMINOPHEN; HYDROCODONE (a set a DARREL bony fen; michael droe KOE done) is a pain reliever. It is used to treat mild to moderate pain. How should I use this medicine? Take this medicine by mouth. Swallow it with a full glass of water. Follow the directions on the prescription label. If the medicine upsets your stomach, take the medicine with food or milk. Do not take more than you are told to take. Talk to your brazing furnace operator regarding the use of this medicine in children. This medicine is not approved for use in children. What side effects may I notice from receiving this medicine? Side effects that you should report to your doctor or health overnight caregiver as soon as possible: allergic reactions like skin rash, itching or hives, swelling of the face, lips, or tongue breathing problems confusion feeling faint or lightheaded, falls stomach pain yellowing of the eyes or skin Side effects that usually do not require medical attention (report to your doctor or health overnight caregiver if they continue or are bothersome): nausea, vomiting stomach upset What may interact with this medicine? alcohol antihistamines isoniazid medicines for depression, anxiety, or psychotic disturbances medicines for sleep muscle relaxants naltrexone narcotic medicines (opiates) for pain phenobarbital ritonavir tramadol What if I miss a dose? If you miss a dose, take it as soon as you can. If it is almost time for your next dose, take only that dose. Do not take double or extra doses. Where should I keep my medicine? Keep out of the reach of children. This medicine can be abused. Keep your medicine in a safe place to protect it from theft. Do not share this medicine with anyone. Selling or giving away this medicine is dangerous and against the law. Store at room temperature between 15 and 30 degrees C (59 and 86 degrees F). Protect from light. Keep container tightly closed. Throw away any unused medicine after the expiration date. Discard unused medicine and used packaging carefully. Pets and children can be harmed if they find used or lost packages. What should I tell my health care provider before I take this medicine? They need to know if you have any of these conditions: brain tumor Crohn's disease, inflammatory bowel disease, or ulcerative colitis drink more than 3 alcohol-containing drinks per day drug abuse or addiction head injury heart or circulation problems kidney disease or problems going to the bathroom liver disease lung disease, asthma, or breathing problems an unusual or allergic reaction to acetaminophen, hydrocodone, other opioid analgesics, other medicines, foods, dyes, or preservatives or trying to get breast-feeding What should I watch for while using this medicine? Tell your doctor or health overnight caregiver if your pain does not go away, if it gets worse, or if you have new or a different type of pain. You may develop tolerance to the medicine. Tolerance means that you will need a higher dose of the medicine for pain relief. Tolerance is normal and is expected if you take the medicine for a long time. Do not suddenly stop taking your medicine because you may develop a severe reaction. Your body becomes used to the medicine. This does NOT mean you are addicted. Addiction is a behavior related to getting and using a drug for a non-medical reason. If you have pain, you have a medical reason to take pain medicine. Your doctor will tell you how much medicine to take. If your doctor wants you to stop the medicine, the dose will be slowly lowered over time to avoid any side effects. You may get drowsy or dizzy when you first start taking the medicine or change doses. Do not drive, use machinery, or do anything that may be dangerous until you know how the medicine affects you. Stand or sit up slowly. There are different types of narcotic medicines (opiates) for pain. If you take more than one type at the same time, you may have more side effects. Give your health care provider a list of all medicines you use. Your doctor will tell you how much medicine to take. Do not take more medicine than directed. Call emergency for help if you have problems breathing. The medicine will cause constipation. Try to have a bowel movement at least every 2 to 3 days. If you do not have a bowel movement for 3 days, call your doctor or health overnight caregiver. Too much acetaminophen can be very dangerous. Do not take Tylenol (acetaminophen) or medicines that contain acetaminophen with this medicine. Many non-prescription medicines contain acetaminophen. Always read the labels carefully. Ibuprofen Oral tablet What is this medicine? IBUPROFEN (eye BYOO proe fen) is a non-steroidal anti-inflammatory drug (NSAID). It is used for dental pain, fever, headaches or migraines, osteoarthritis, rheumatoid arthritis, or painful monthly periods. It can also relieve minor aches and pains caused by a cold, flu, or sore throat. How should I use this medicine? Take this medicine by mouth with a glass of water. Follow the directions on the prescription label. Take this medicine with food if your stomach gets upset. Try to not lie down for at least 10 minutes after you take the medicine. Take your medicine at regular intervals. Do not take your medicine more often than directed. A special MedGuide will be given to you by the pharmacist with each prescription and refill. Be sure to read this information carefully each time. Talk to your brazing furnace operator regarding the use of this medicine in children. Special care may be needed. What side effects may I notice from receiving this medicine? Side effects that you should report to your doctor or health overnight caregiver as soon as possible: allergic reactions like skin rash, itching or hives, swelling of the face, lips, or tongue black or bloody stools, blood in the urine or in vomit breathing problems changes in vision chest pain general ill feeling or flu-like symptoms nausea or vomiting redness, blistering, peeling or loosening of the skin, including inside the mouth slurred speech or weakness on one side of the body stomach pain unexplained weight gain or swelling unusually weak or tired yellowing of eyes or skin Side effects that usually do not require medical attention (report to your doctor or health overnight caregiver if they continue or are bothersome): constipation or diarrhea dizziness gas or heartburn stomach upset What may interact with this medicine? Do not take this medicine with any of the following medications: cidofovir ketorolac methotrexate pemetrexed This medicine may also interact with the following medications: alcohol aspirin diuretics lithium other drugs for inflammation like prednisone warfarin What if I miss a dose? If you miss a dose, take it as soon as you can. If it is almost time for your next dose, take only that dose. Do not take double or extra doses. Where should I keep my medicine? Keep out of the reach of children. Store at room temperature between 15 and 30 degrees C (59 and 86 degrees F). Keep container tightly closed. Throw away any unused medicine after the expiration date. What should I tell my health care provider before I take this medicine? They need to know if you have any of these conditions: asthma cigarette smoker drink more than 3 alcohol containing drinks a day heart disease or circulation problems such as heart failure or leg edema (fluid retention) high blood pressure kidney disease liver disease stomach bleeding or ulcers an unusual or allergic reaction to ibuprofen, aspirin, other NSAIDS, other medicines, foods, dyes, or preservatives or trying to get breast-feeding What should I watch for while using this medicine? Tell your doctor or healthcare professional if your symptoms do not start to get better or if they get worse. This medicine does not prevent heart attack or stroke. In fact, this medicine may increase the chance of a heart attack or stroke. The chance may increase with longer use of this medicine and in people who have heart disease. If you take aspirin to prevent heart attack or stroke, talk with your doctor or health overnight caregiver. Do not take other medicines that contain aspirin, ibuprofen, or naproxen with this medicine. Side effects such as stomach upset, nausea, or ulcers may be more likely to occur. Many medicines available without a prescription should not be taken with this medicine. This medicine can cause ulcers and bleeding in the stomach and intestines at any time during treatment. Ulcers and bleeding can happen without warning symptoms and can cause . To reduce your risk, do not smoke cigarettes or drink alcohol while you are taking this medicine. You may get drowsy or dizzy. Do not drive, use machinery, or do anything that needs mental alertness until you know how this medicine affects you. Do not stand or sit up quickly, especially if you are an older patient. This reduces the risk of dizzy or fainting spells. This medicine can cause you to bleed more easily. Try to avoid damage to your teeth and gums when you brush or floss your teeth. Acetaminophen Oral tablet What is this medicine? ACETAMINOPHEN (a set a DARREL bony fen) is a pain reliever. It is used to treat mild pain and fever. How should I use this medicine? Take this medicine by mouth with a glass of water. Follow the directions on the package or prescription label. Take your medicine at regular intervals. Do not take your medicine more often than directed. Talk to your brazing furnace operator regarding the use of this medicine in children. While this drug may be prescribed for children as young as 6 years of age for selected conditions, precautions do apply. What side effects may I notice from receiving this medicine? Side effects that you should report to your doctor or health overnight caregiver as soon as possible: allergic reactions like skin rash, itching or hives, swelling of the face, lips, or tongue breathing problems fever or sore throat redness, blistering, peeling or loosening of the skin, including inside the mouth trouble passing urine or change in the amount of urine unusual bleeding or bruising unusually weak or tired yellowing of the eyes or skin Side effects that usually do not require medical attention (report to your doctor or health overnight caregiver if they continue or are bothersome): headache nausea, stomach upset What may interact with this medicine? alcohol imatinib isoniazid other medicines with acetaminophen What if I miss a dose? If you miss a dose, take it as soon as you can. If it is almost time for your next dose, take only that dose. Do not take double or extra doses. Where should I keep my medicine? Keep out of reach of children. Store at room temperature between 20 and 25 degrees C (68 and 77 degrees F). Protect from moisture and heat. Throw away any unused medicine after the expiration date. What should I tell my health care provider before I take this medicine? They need to know if you have any of these conditions: if you frequently drink alcohol containing drinks liver disease an unusual or allergic reaction to acetaminophen, other medicines, foods, dyes or preservatives or trying to get breast-feeding What should I watch for while using this medicine? Tell your doctor or health overnight caregiver if the pain lasts more than 10 days (5 days for children), if it gets worse, or if there is a new or different kind of pain. Also, check with your doctor if a fever lasts for more than 3 days. Do not take other medicines that contain acetaminophen with this medicine. Always read labels carefully. If you have questions, ask your doctor or pharmacist. If you take too much acetaminophen get medical help right away. Too much acetaminophen can be very dangerous and cause liver damage. Even if you do not have symptoms, it is important to get help right away. You have been given the following additional information: Nail Avulsion, Partial Diphtheria Toxoid Adsorbed, Pertussis Vaccine, Acellular (Adsorbed), Tetanus Toxoid, Adsorbed Suspension for injection Hydrocodone Bitartrate, Acetaminophen Oral tablet Ibuprofen Oral tablet Acetaminophen Oral tablet You may walk and bear weight as tolerated. (Electronically signed by Attila Ambrocio DO 09/27/2016 20:28)
== END 2016-09-26 22:58 | disposition home or self-care (01) ==
LOC: ED SRH 21:44
DX: S91.201A Unspecified open wound of right great toe with damage to nail, initial encounter (principal); W22.8XXA Striking against or struck by other objects, initial encounter; Y93.9 Activity, unspecified; Y92.009 Unspecified place in unspecified non-institutional (private) residence as the place of occurrence of the external cause; Y99.9 Unspecified external cause status; Z23 Encounter for immunization